=== PATIENT | female | born 1970 | race Caucasian/White ===

== ENCOUNTER 2017-02-06 22:31 | Emergency (ER) | payer OTHER ==
[~2017-02-06] VITALS: Ht 162.6 cm; Wt 54.4 kg
[~2017-02-06 22:31] MED LIST: AMBEREN; AMOXICILLIN 50500 MG PO; ASPIRIN EC81 M1 PO; FOLIC ACID1 MG; IBUPROFEN 800800 M1 PO; LISINOPRIL-HCT1 EACH PO; LISINOPRIL5 MG; MINOCYCLINE HC100 M2; NICOTINE TRANSD14 M1; NORCO 5-325 TA1 EAC1 PO; OMEGA-31000 MG; VITAMIN B-1100 M1
[2017-02-06 22:34] VITALS: BP 178/99
[2017-02-06] MEDS ORDERED: CLEOCIN HCL150 MG PO (22:55)
== END 2017-02-06 23:10 | disposition home or self-care (01) ==
LOC: M.ERS 22:31
DX: S81.852A Open bite, left lower leg, initial encounter (principal); W54.0XXA Bitten by dog, initial encounter; I10 Essential (primary) hypertension; Z88.8 Allergy status to other drugs, medicaments and biological substances; Z88.0 Allergy status to penicillin; Y93.89 Activity, other specified; Y92.89 Other specified places as the place of occurrence of the external cause; Y99.8 Other external cause status

== ENCOUNTER 2018-01-14 00:23 | Emergency (ER) | payer OTHER ==
[~2018-01-14] VITALS: Ht 162.6 cm; Wt 59.0 kg
[~2018-01-14 00:23] MED LIST changes: +CLEOCIN HCL150 MG PO
[2018-01-14 00:48] LABS: POC CA IONIZED 4.9 mg/dL (4.5-5.3); POC CREATININE 0.9 mg/dL (0.6-1.3); POC HEMOGLOBIN 14.3 g/dL (12.0-17.0); POC POTASSIUM 3.9 mmol/L (3.5-4.9)
[2018-01-14 00:53] LABS: ABSOLUTE BASOPHILS 0.1 thou/uL (0.0-0.2); ABSOLUTE EOSINOPHILS 0.3 thou/uL (0.0-0.7); ABSOLUTE LYMPHOCYTES 2.9 thou/uL (0.8-5.3); ABSOLUTE MONOCYTES 0.5 thou/uL (0.0-1.2); ABSOLUTE NEUTROPHILS 4.4 thou/uL (1.6-8.1); BASOPHILS 0.9 %; EOSINOPHILS 3.2 %; HEMATOCRIT 42.3 % (37.0-47.0); HEMOGLOBIN 14.5 gm/dL (12.0-15.0); LYMPHOCYTES 35.5 %; MCH 33.6 pg (26.0-34.0); MCHC 34.4 g/dL (28.0-37.0); MCV 97.6 fL (80.0-100.0); MONOCYTES 5.9 %; MPV 8.5 fl. (7.2-11.1); NUCLEATED RBCS 0 /100WBC; PLATELET COUNT* 298 thou/uL (150-400); POLYS 54.5 %; RBC 4.33 mil/uL (4.20-5.00); WBC 8.1 thou/uL (4.0-11.0)
[2018-01-14 01:19] LABS: CALCIUM 9.6 mg/dL (8.5-10.1); CREATININE 0.7 mg/dL (0.6-1.3); POTASSIUM 3.8 mmol/L (3.5-5.1)
[2018-01-14 01:23] LABS: TOTAL BILIRUBIN 0.1 mg/dL (<0.1-1.0); TOTAL PROTEIN 7.3 g/dL (6.4-8.2)
[2018-01-14 01:30] LABS: APTT 27.6 Seconds (25.0-31.3); INR 0.9; PROTIME 9.4 Seconds (9.20-11.50)
[2018-01-14] MEDS ORDERED: NOHOMEMEDICATIONS (01:48)
[2018-01-14 02:00] LABS: URINE BILIRUBIN NEGATIVE (Negative); URINE BLOOD NEGATIVE (Negative); URINE CLARITY CLEAR; URINE COLOR STRAW; URINE GLUCOSE-RANDOM NEGATIVE (Negative); URINE KETONES NEGATIVE (Negative); URINE LEUKOCYTES NEGATIVE (Negative); URINE NITRITE NEGATIVE (Negative); URINE PROTEIN NEGATIVE (Negative); URINE SPECIFIC GRAVITY <= 1.005 (1.005-1.030); URINE UROBILINOGEN 0.2 E.U./dl (0.2-1.0)
[2018-01-14 02:08] LABS: AMP/METHAMP Negative (Negative); BARBITURATES Negative (Negative); BENZODIAZEPINES Negative (Negative); COCAINE Negative (Negative); METHADONE Negative (Negative); OPIATES Negative (Negative); PCP Negative (Negative); THC Negative (Negative)
[2018-01-14 03:55] VITALS: BP 136/77
--- NOTE | 2018-01-14 10:14 | EKG ---
[place] [address] ELECTROCARDIOGRAM REPORT Name: FLAVIA SALGUEROISE Room: [facility]#: [id number] Admission: 01/14/18 Attend Phys: Discharge: 01/14/18 Date of : 74 Report #: [id number] THIS REPORT FOR: //name// [facility] ED Test Date: 2018-01-14 Test Time: 02:00:18 Pat Name: FLAVIA SALGUERO Department: Room: Gender: F [employer] The[employer]ist: LISETH : 1970 Requested By: Hannah Watters Order Number: [id number] MD: Marc Kidd Measurements Intervals [employer] Rate: 73 P: 76 SC: 230 QRS: 84 QRSD: 89 T: 40 QT: 391 QTc: 431 Interpretive Statements Sinus rhythm Prolonged SC interval Baseline wander in lead(s) V2 Compared to ECG 05/07/2011 23:34:33 First degree AV block now present Right-axis deviation no longer present Electronically Signed On 01-14-2018 10:14:02 [employer] by Marc Kidd [email or web address] <ELECTRONICALLY SIGNED> By: Marc Kidd MD, [facility] 01/14/18 1014 0200 0200 Marc Kidd MD, [facility] /EPI
== END 2018-01-14 03:55 | disposition home or self-care (01) ==
LOC: M.ERS 00:23
PROVIDERS: Emergency Medicine
DX: F10.129 Alcohol abuse with intoxication, unspecified (principal); R53.1 Weakness; I10 Essential (primary) hypertension; Z88.0 Allergy status to penicillin

== ENCOUNTER 2019-07-28 01:20 | Emergency (ER) | payer OTHER ==
[~2019-07-28] VITALS: Ht 162.6 cm; Wt 56.7 kg
[~2019-07-28 01:20] MED LIST changes: +NOHOMEMEDICATIONS
[2019-07-28 02:02] LABS: URINE BILIRUBIN NEGATIVE (Negative); URINE BLOOD NEGATIVE (Negative); URINE CLARITY CLEAR; URINE COLOR STRAW; URINE GLUCOSE-RANDOM NEGATIVE (Negative); URINE KETONES NEGATIVE (Negative); URINE LEUKOCYTES-REFLEX NEGATIVE (Negative); URINE NITRITE-REFLEX NEGATIVE (Negative); URINE PROTEIN NEGATIVE (Negative); URINE SPECIFIC GRAVITY <= 1.005 (1.005-1.030); URINE UROBILINOGEN 0.2 E.U./dl (0.2-1.0)
[2019-07-28 02:11] LABS: AMP/METHAMP Negative (Negative); BARBITURATES Negative (Negative); BENZODIAZEPINES Negative (Negative); COCAINE Negative (Negative); METHADONE Negative (Negative); OPIATES Negative (Negative); PCP Negative (Negative); THC Negative (Negative)
[2019-07-28 02:25] LABS: ABSOLUTE BASOPHILS 0.1 thou/uL (0.0-0.2); ABSOLUTE EOSINOPHILS 0.3 thou/uL (0.0-0.7); ABSOLUTE LYMPHOCYTES 2.9 thou/uL (0.8-5.3); ABSOLUTE MONOCYTES 0.3 thou/uL (0.0-1.2); ABSOLUTE NEUTROPHILS 3.2 thou/uL (1.6-8.1); BASOPHILS 1.2 %; EOSINOPHILS 3.8 %; HEMATOCRIT 41.9 % (37.0-47.0); HEMOGLOBIN 14.9 gm/dL (12.0-15.0); LYMPHOCYTES 42.3 %; MCH 33.7 pg (26.0-34.0); MCHC 35.5 g/dL (28.0-37.0); MCV 94.7 fL (80.0-100.0); MONOCYTES 5.1 %; NUCLEATED RBCS 0 /100WBC; PLATELET COUNT* 314 thou/uL (150-400); POLYS 47.6 %; RBC 4.42 mil/uL (4.20-5.00); RDW-CV 12.7 % (10.5-14.5); WBC 6.8 thou/uL (4.0-11.0)
[2019-07-28 02:49] LABS: CALCIUM 9.3 mg/dL (8.5-10.1); CREATININE 0.9 mg/dL (0.6-1.3); POTASSIUM 3.8 mmol/L (3.5-5.1)
[2019-07-28 03:02] LABS: ALBUMIN 4.1 g/dL (3.4-5.0); MAGNESIUM 2.2 mg/dL (1.8-2.4); TOTAL BILIRUBIN 0.1 mg/dL (<0.1-1.0); TOTAL PROTEIN 7.5 g/dL (6.4-8.2)
[2019-07-28 05:30] VITALS: BP 137/85
--- NOTE | 2019-07-28 09:14 | EKG ---
[place] [address] ELECTROCARDIOGRAM REPORT Name: FLAVIA SALGUERO Room: [facility]#: [id number] Admission: 07/28/19 Attend Phys: Discharge: 07/28/19 Date of : 74 Date of Service: 07/28/19 0207 Report #: [id number] THIS REPORT FOR: //name// [facility] ED Test Date: 2019-07-28 Test Time: 02:07:18 Pat Name: FLAVIA SALGUERO Department: Room: Gender: [employer]: JOSE : 1970 Requested By: Hannah Watters Order Number: [id number] MD: Marc Kidd Measurements Intervals [place] Rate: 77 P: 81 IL: 233 QRS: 81 QRSD: 91 T: 39 QT: 370 QTc: 419 Interpretive Statements Sinus rhythm Prolonged [place] interval Probable left atrial enlargement Abnormal R-wave progression, late transition ST elev, probable normal early repol pattern Compared to ECG 01/14/2018 02:00:18 no change Electronically Signed On 07-28-2019 9:13:41 CDT by Marc Kidd [email or web address] <ELECTRONICALLY SIGNED> By: Marc Kidd MD, [facility] 07/28/19 0913 0207 0207 Marc Kidd MD, [facility] /EPI
== END 2019-07-28 05:30 | disposition home or self-care (01) ==
LOC: M.ERS 01:20
PROVIDERS: Emergency Medicine
DX: R07.89 Other chest pain (principal); M54.9 Dorsalgia, unspecified; I10 Essential (primary) hypertension; Z88.0 Allergy status to penicillin; Z88.8 Allergy status to other drugs, medicaments and biological substances